=== PATIENT | male | born 1975 | race Asian ===

== ENCOUNTER 2017-07-05 09:00 | Emergency (ER) | payer OTHER ==
[~2017-07-05] VITALS: Ht 182.9 cm; Wt 91.7 kg
[2017-07-05 09:06] VITALS: BP 124/80
--- NOTE | 2017-07-05 09:14 | NUR ---
PT AMBULATED TO BED 2.
--- NOTE | 2017-07-05 09:15 | NUR ---
patient is a 42 year-old male who was brought in for c/o n,v,d x 3 days. patient is alert and oriented x 4. respirations are even and unlabored. patient states that he is unable to hold any food or water down due to current health situation. patient's abdomen is soft, non-tender. bowerl sounds present in all four quadrants. patient describes abdominal cramping. no episodes of vomiting observed at this time. patient states has been treated for c-diff in the past. Dr. Gonzalez at bedside for assessment.
[2017-07-05] MEDS ORDERED: NACL 0.9% 1,000 ML IV SCH (09:21)
[2017-07-05] MEDS ORDERED: ONDANSETRON 4 MG/2 ML VIAL IVP ONE (09:25)
--- NOTE | 2017-07-05 09:45 | NUR ---
Dillon suresh in ED - 07/05/17 at 1136 by JOEL informed patient that urine sample is needed, patient replied by saying "I'm a renal patient. I don't pee." made aware.
[2017-07-05 10:05] LABS: HEMATOCRIT 45.9 % (36-52); HEMOGLOBIN 15.5 g/dL (12.0-18.0); MEAN CORPUSCULAR HEMOGLOBIN 30 pg (27-31); MEAN CORPUSCULAR HGB CONC 34 g/dL (33-37); MEAN CORPUSCULAR VOLUME 88 fL (80-94); PLATELET COUNT (AUTO) 301 K/uL (140-450); RED BLOOD CELL COUNT(AUTO) 5.22 MIL/uL (4.20-6.10); WHITE BLOOD COUNT (AUTO) 6.5 K/uL (4.8-10.8)
[2017-07-05 10:08] LABS: CARBON DIOXIDE 22.7 mmol/L (21-32); POTASSIUM 3.7 mmol/L (3.5-5.1)
--- NOTE | 2017-07-05 10:10 | NUR ---
patient resting in bed. patient states " I'm ok." will continue to monitor.
[2017-07-05 10:15] LABS: ALBUMIN 3.9 g/dL (3.4-5.0); TOTAL BILIRUBIN 1.4 mg/dL (0.0-1.0)
[2017-07-05 10:17] LABS: EOSINOPHILS % (MANUAL) 3 % (0-4); LYMPHOCYTES % (MANUAL) 35 % (20-46); MONOCYTES % (MANUAL) 10 % (5-12)
[2017-07-05 11:03] LABS: APPEARANCE,URINE HAZY (CLEAR); BILIRUBIN,URINE NEGATIVE (NEGATIVE); BLOOD, URINE TRACE-I (NEGATIVE); COLOR,URINE YELLOW (YELLOW); LEUKOCYTE ESTERASE ,URINE NEGATIVE (NEGATIVE); NITRITE, URINE NEGATIVE (NEGATIVE); UGLUCOSE NEGATIVE (NEGATIVE)
[2017-07-05 11:21] LABS: RBC,URINE 0-5 (RARE) /HPF (0-5); WBC,URINE 0-5 (RARE) /HPF (0-5)
--- NOTE | 2017-07-05 11:25 | NUR ---
patient resting on bed. patient states "I'm doing ok." respirations are even and unlabored. status update given to patient. will continue to monitor.
[2017-07-05] MEDS ORDERED: LOPERAMIDE 2 MG CAP PO ONE (12:05)
--- NOTE | 2017-07-05 12:08 | NUR ---
CALLED PHARMACY FOR IMODIUM ORDERED BY ER MD NOT AVAILABLE IN [facility]; PHARMACY TO BRING MEDICATION TO ER.
--- NOTE | 2017-07-05 12:45 | NUR ---
IV removed, catheter intact and site benign. Applied folded 4x4 gauze and tape to stop bleeding. Patient tolerated procedure without any complaints.
[2017-07-05 13:20] VITALS: BP 136/78
--- NOTE | 2017-07-05 13:20 | NUR ---
Patient discharged with v/s stable. Written and verbal after care instructions given and explained. Patient alert, oriented and verbalized understanding of instructions. Ambulatory with steady gait. All questions addressed prior to discharge. ID band removed. Patient advised to follow up with PMD. Rx of Imodium and Bentyl given. Patient educated on indication of medication including possible reaction and side effects. Opportunity to ask questions provided and answered.
== END 2017-07-05 13:20 | disposition home or self-care (01) ==
LOC: MED 09:00
DX: A08.4 Viral intestinal infection, unspecified (principal)
CPT/HCPCS: 36415; 80053; 81001; 83690; 85025; 87070; 87798; 96361; 96374; 99284; J2405; J7030